=== PATIENT | male | born 1960 | race Caucasian/White ===

== ENCOUNTER → 2023-05-21 | Outpatient (CLI) | payer BC ==
--- NOTE | 2023-05-27 20:24 | P.PCN ---
Date of Procedure: 05/21/23 Operative Findings: Home sleep study testing Date of service is 05/21/2023 Pertinent history This patient is suspected to have obstructive sleep apnea. He has loud snoring, witnessed apneas and sleep fragmentation. He is an manager statistics. His functionality at work is not affected at this point in time. He denies having any major hypersomnia or sleepiness. His [place] score is at 2. However, he has gained some weight over the years and patient has a body mass index 34. He has a Mallampati class IV. He has tried his 's BiPAP unit and he has seen significant response and he thinks that he may have an underlying obstructive sleep apnea. For that reason, he presented to me and he was given a home sleep study Pertinent physical findings The patient has a weight of 239 pounds and his height is 5 feet and 10 inches and body mass index is 34.3 Technical description The [employer] apnea link system was used to complete his home sleep study. This is a type III home sleep study evaluation. The study duration was 8 hours and 59 minutes. The study started that 9:32 PM and ended at 6:32 AM. This was an adequate study as the patient has a total of 8026 minutes of flow monitoring and 8 hours and 37 minutes of oxygen saturation monitoring. Results The respiratory analysis showed a total of 115 obstructive apneas and 176 obstructive hypopneas. The resulting AHI was 34.4 consistent with severe obstructive sleep apnea. Noted the patient was supine for the most part of the sleep study and there was no significant positional variation and severity of sleep apnea which changes in his body position Oxygenation analysis The patient had a total of 258 oxygen desaturations with a pulse ox of by more than 4%. The baseline pulse ox while awake was 95%, average pulse ox during sleep was 93%, minimum pulse ox was 83% and the patient spent approximately 24 minutes of the sleep time below pulse ox of 89%. Cardiac analysis The average heart rate was 68, minimum heart rate was 55 and a maximum heart rate was 163 Assessment Severe obstructive sleep apnea with an AHI of 34.4 Mild nocturnal oxygen desaturation with a minimum pulse ox of 83% Loud snoring Hypertension Plan This patient has severe obstructive sleep apnea. He has trialed a BiPAP machine in the past and he has responded significantly and he showed interest and being treated for his obstructive sleep apnea. Based on the current home sleep study, he has significant disease with significant number of obstructive apneas and hypopneas. I think this patient would benefit from CPAP or BiPAP therapy. A final decision will be made after doing an in lab CPAP titration to complete a limited obstructive sleep apnea and decide on the device type and the pressure setting. Will be also fitted with an appropriate mask interface. The patient will make an effort to lose weight. Maintain regular sleep schedule and optimize sleep hygiene measures. Will continue to follow.
== END ==
LOC: 3 N SLEEP 16:52
PROVIDERS: ATTEND Internal Medicine Critical Care Medicine
DX: G47.33 Obstructive sleep apnea (adult) (pediatric) (principal); G47.36 Sleep related hypoventilation in conditions classified elsewhere; I10 Essential (primary) hypertension

== ENCOUNTER 2023-09-28 20:09 | Outpatient (CLI) | payer BC ==
--- NOTE | 2023-09-29 13:53 | P.PCN ---
Date of Procedure: 09/28/23 Operative Findings: CPAP titration report Date of service is 09/28/2023 History This is a 63-year-old male patient diagnosed having severe DEMI with an AHI of 34 and the patient is coming in to undergo a CPAP titration. The patient has chronic hypersomnia, loud snoring and hypertension. Pertinent physical findings The patient has a height of 5 feet and 10 inches, weight is 239 pounds with a body mass index of 34.3 Technical description The patient was studied using a standard complex polysomnography protocol that included recording of the 2 EKG, Central, occipital and frontal EEG, right and left outer canthus EOG, submental EMG, right and left anterior tibialis EMG, respiratory airflow by thermocouple and or pressure/flow transducer, respiratory efforts by abdominal and thoracic PVDF belts, oxygen saturation by cable oximetry. Position by observation synchronized the PSG. Stepwise CPAP ti tration was done to eliminate all obstructive respiratory events.. Equipment used: [employer]. Sleep architecture The total recording duration was 394.0 minutes. Total sleep time was 235.0 mi nutes. The wake after sleep onset time was 98.5 minutes. Overall sleep efficiency was 59.6%. The latency to sleep onset was 63.5 minutes. The latency to REM sleep was 112.5 minutes. The sleep architecture was characterized by 7.9% stage I, 70.9% stage II, 0% stage III, 23% REM sleep. Total arousal index was 11. Respiratory analysis CPAP titration was initiated starting with a CPAP pressure of 5 cm of water and pressure was gradually creased by increments of 1 cm to reach a maximum CPAP pressure of 7 mm of 14. I Reviewed the CPAP titration taken, the patient sleep stage and body position. Despite the poor sleep efficiency, the titration is somewhat successful. The patient had adequate elevation of the obstructive respiratory events regarding CPAP pressure of 7 cm of water. He was studied in various sleep stages and body positions. No significant desaturations were encountered and the target CPAP pressure of 7 cm of water Sleep continuity summary The total number of arousals throughout the sleep study was 43 with an index of 11.0. The respiratory arousal index was 1.5 Periodic limb movement activity There was a total of 154 periodic limb movements during sleep with an index of 39.3. Periodic limb movements with arousals were total of 5 with an index of 1.3 Cardiac summary The average heart rate was 65 with a minimum heart rate of 60 and a maximum heart rate of 70 Assessment Severe obstructive sleep apnea with an AHI of 34.4, and the patient underwent a successful CPAP titration. Mild nocturnal oxygen desaturation with a minimum pulse ox of 83%, improved with CPAP therapy Loud snoring Hypertension Plan Initiate CPAP therapy and the pressure will be set at a pressure of 7 cm of water with a C-Flex of 3. The patient is going to be off of the medium size airfit F20 fullface mask. The patient will see me back in 30 to 90 days to assess clinical response and compliancy. Will continue to follow make further recommendations based on the patient's clinical response and tolerability. Will continue to follow.
== END 2023-09-29 05:15 | disposition home or self-care (01) ==
LOC: 3 N SLEEP 20:09
PROVIDERS: ATTEND Internal Medicine Critical Care Medicine
DX: G47.33 Obstructive sleep apnea (adult) (pediatric) (principal); G47.10 Hypersomnia, unspecified; I10 Essential (primary) hypertension; G47.36 Sleep related hypoventilation in conditions classified elsewhere
CPT/HCPCS: 95811